=== PATIENT | female | born 1975 | race Caucasian/White ===

== ENCOUNTER → 2017-05-22 16:23 | Outpatient (CLI) | payer BC, SELFPAY ==
--- NOTE | 2017-05-22 16:27 | MM_ITS ---
MM Dig screening mamm BI w/CAD CAD Screening ORDERING PHYSICIAN : Emily Vick PATIENT AGE: 41 years GENDER: Female COMPARISON: Previous mammograms: February 2015, April 2016.. Left mammogram from September 2015 INDICATION: Routine screening no hormones. No new complaints. Previous cyst aspiration. Positive Family history. Mother with breast cancer age 50 and grandmother at age 40 TECHNIQUE: Standard CC and MLO images were obtained. R2 CAD reviewed. FINDINGS: Moderate breast density with fibroglandular elements most evident upper-outer quadrant bilateral RIGHT BREAST:Stable appearance right breast. No new findings. No areas of concern. LEFT BREAST:Visual inspection as well as CAD highlights an area of possible architectural distortion & slight increased minimal density at the lateral left breast on the cc view only. This appearance warrants additional CC and possibly rolled cc spot views. As well as full 90 degree view of the left breast. It may merely reflect summation shadow since seems to dissipate on MLO view but is a change on this single cc view obtained today..) Also Warrants close scrutiny in this patient with positive family history IMPRESSION: Question area of possible vague architectural distortion(versus summation shadow) developing lateral breast on cc view only. Warrants additional spot views as in text. BI-RADS Category: 0 Need Additional Imaging Evaluaiton. RECOMMENDED FOLLOW-UP: IMM - IMMEDIATE FOLLOW-UP RECOMMENDED (A letter has been sent to the patient regarding results of the study.)
== END ==
PROVIDERS: Family Provider Nurse Practitioner Family; PCP Nurse Practitioner Family; Visit Provider Nurse Practitioner Family
DX: Z12.31 Encounter for screening mammogram for malignant neoplasm of breast (principal)
CPT/HCPCS: 77067

== ENCOUNTER → 2017-05-28 14:18 | Outpatient (CLI) | payer BC, SELFPAY ==
--- NOTE | 2017-05-28 14:27 | MM_ITS ---
MM Dig mamm DX unilat LT CAD Ordering Physician: Emily Vick Patient Age: 41 years: Female HISTORY: ITS.REASON: ABNORMAL MAMM TECHNIQUE: CC, rolled CC spot views along with 90 degree view left breast COMPARISON :May 22, 2017: September 2015, February 2015 HISTORY for evaluation area of slight increased density lateral left breast cc view LEFT BREAST CC and rolled cc views performed today, decreased concern regarding any significant new feature upper-outer quadrant Area noted on recent screening mammogram seems to compress out on compression spot views.. However I would encourage a follow-up left mammogram in 6 months as well as directed physical exam to the upper-outer quadrant. A palpable area encountered or develops ultrasound be useful compliment to mammography in this region. I would note a previous ultrasound was performed here in 2016 and was unremarkable IMPRESSION: Today's rolled cc views decrease concern regarding any significant new features upper-outer quadrant left breast. Overall stable appearance on today's additional views. I would suggest a follow-up left mammogram and physical exam 6 - 8 months to confirm stability. With likely routine protocol thereafter BI-RADS Category: 3 Benign Finding Short Term Follow-up RECOMMENDED FOLLOW-UP: 6M - 6 MONTH FOLLOW-UP (A letter has been sent to the patient regarding results of the study.)
== END ==
PROVIDERS: Family Provider Nurse Practitioner Family; PCP Nurse Practitioner Family; Visit Provider Nurse Practitioner Family
DX: R92.8 Other abnormal and inconclusive findings on diagnostic imaging of breast (principal)
CPT/HCPCS: 77065

== ENCOUNTER 2018-06-12 13:40 | Outpatient (CLI) | payer BC, SELFPAY ==
[2018-06-12 14:20] VITALS: BP 121/78; PULSE 89; RESP 18; O2SAT 100
[2018-06-12 14:50] VITALS: BP 122/76; PULSE 85; RESP 18
== END 2018-06-12 15:00 | disposition home or self-care (01) ==
LOC: INF 14:01
PROVIDERS: Visit Provider Nurse Practitioner
DX: E61.1 Iron deficiency (principal)
CPT/HCPCS: 96365; J1439

== ENCOUNTER 2018-06-19 09:02 | Outpatient (CLI) | payer BC, SELFPAY ==
[2018-06-19 09:11] VITALS: BP 122/78; PULSE 96; RESP 20; TEMP 36.6; O2SAT 96
[2018-06-19 09:55] VITALS: BP 126/77; PULSE 84; RESP 18; O2SAT 97
== END 2018-06-19 09:55 | disposition home or self-care (01) ==
LOC: INF 09:02
PROVIDERS: Visit Provider Nurse Practitioner
DX: E61.1 Iron deficiency (principal)
CPT/HCPCS: 96365; J1439

== ENCOUNTER → 2018-10-10 09:27 | Outpatient (CLI) | payer BC, SELFPAY | PROVIDERS: PCP Nurse Practitioner Family; Visit Provider Nurse Practitioner Family | DX: G47.33 Obstructive sleep apnea (adult) (pediatric) (principal); I10 Essential (primary) hypertension; R40.0 Somnolence; R51 Headache; R06.83 Snoring | CPT/HCPCS: 95806 ==

== ENCOUNTER → 2019-04-11 11:50 | Outpatient (CLI) | payer OTHER, SELFPAY ==
--- NOTE | 2019-04-11 11:55 | XR_ITS ---
PROCEDURE: XR CHEST 2V CLINICAL HISTORY: COUGH COMPARISON: CXR CHEST(2 VIEWS-NOT PORTABLE) from 04/29/2016 FINDINGS: The cardiomediastinal silhouette and pulmonary vascularity are within normal limits. The lungs are clear without infiltrates, suspicious nodules, or pleural effusions. No acute bony abnormalities. IMPRESSION: No acute findings. Dictated by: Artur Medrano MD 04/11/2019 14:14 Electronically signed by Artur Medrano MD in [place] 04/11/2019 14:14
== END ==
PROVIDERS: PCP Nurse Practitioner Family; Visit Provider Nurse Practitioner Family
DX: R05 Cough (principal)
CPT/HCPCS: 71046

== ENCOUNTER → 2019-04-22 09:55 | Outpatient (CLI) | payer OTHER, SELFPAY ==
[2019-04-22 10:30] VITALS: PULSE 86; PULSE 91
== END ==
PROVIDERS: PCP Nurse Practitioner Family; Visit Provider Nurse Practitioner Family
DX: R05 Cough (principal)
CPT/HCPCS: 94060; 94640

== ENCOUNTER → 2019-08-21 13:37 | Outpatient (CLI) | payer OTHER, SELFPAY ==
--- NOTE | 2019-08-21 13:44 | US_ITS ---
PROCEDURE: US TRANSVAGINAL CLINICAL INDICATION: PROLONGED PERIODS,ABN UTERINE BLEEDING Dysfunctional uterine bleeding COMPARISON: No exams were available for comparison FINDINGS: The uterus measures 11 x 6 x 7 cm. Nabothian cysts are noted. The uterus is lobular in contour. Endometrial thickness is 7 mm. Heterogeneous echogenicity is present in the fundus of the uterus anteriorly measuring 1.7 x 1 cm consistent with a fibroid. In the posterior aspect of the body uterus there is a 1.2 x 1 cm area of heterogeneous echogenicity also suggesting a fibroid. The left ovary is 4 x 4 cm and contains a 3 cm cyst. The right ovary is 4 x 3 cm and contains a 2.6 cm cyst with a central septation. No cul-de-sac fluid is evident. IMPRESSION: Enlarged uterus with fibroid involvement. Bilateral ovarian cysts measuring up to 3 cm on the left Dictated by: Artur Medrano MD 08/22/2019 06:55 Electronically signed by Artur Medrano MD in [place] 08/22/2019 06:55
== END ==
LOC: RAD 13:37
PROVIDERS: PCP Nurse Practitioner Family; Visit Provider Nurse Practitioner Family
DX: N93.8 Other specified abnormal uterine and vaginal bleeding (principal)
CPT/HCPCS: 76830

== ENCOUNTER → 2020-01-14 10:54 | Outpatient (CLI) | payer OTHER, SELFPAY | PROVIDERS: PCP Family Medicine; Visit Provider Family Medicine | DX: Z03.818 Encounter for observation for suspected exposure to other biological agents ruled out (principal) | CPT/HCPCS: U0003 ==

== ENCOUNTER → 2020-03-31 11:49 | Outpatient (CLI) | payer OTHER, SELFPAY | PROVIDERS: PCP Family Medicine; Visit Provider Family Medicine | DX: Z03.818 Encounter for observation for suspected exposure to other biological agents ruled out (principal) | CPT/HCPCS: U0003 ==

== ENCOUNTER → 2021-02-21 13:54 | Outpatient (CLI) | payer BC, SELFPAY ==
--- NOTE | 2021-02-21 13:59 | MM_ITS ---
PROCEDURE INFORMATION: Exam: MG Bilateral Diagnostic Breast Tomosynthesis Exam date and time: 02/21/2021 1:59 PM Age: 45 years old Clinical indication: Short-term radiographic follow-up for questionable bilateral asymmetries TECHNIQUE: Imaging protocol: Bilateral Diagnostic tomosynthesis and 2D mammography including computer-aided detection (CAD) when performed. Unilateral or bilateral exam. COMPARISON: 1. MG MAMMO DIAGNOSTIC DIGITAL TOMOSYNTHESIS BILATERAL W CAD 08/19/2020 8:11 AM 2. MG MAMMO SCREENING DIGITAL TOMOSYNTHESIS BILATERAL W CAD 05/29/2019 9:57 AM FINDINGS: MAMMOGRAPHY: The breast tissue is heterogeneously dense, which may obscure small masses. There is no stellate mass, architectural distortion or suspicious microcalcifications in either breast to suggest malignancy. Specifically, no suspicious asymmetries identified in either breast. No skin thickening or axillary adenopathy. IMPRESSION: No mammographic evidence of malignancy. Annual bilateral mammographic screening is recommended unless otherwise clinically indicated. ASSESSMENT: BI-RADS Category 1: Negative
== END ==
LOC: RAD 13:54
PROVIDERS: PCP Family Medicine; Visit Provider Family Medicine
DX: R92.8 Other abnormal and inconclusive findings on diagnostic imaging of breast (principal)
CPT/HCPCS: 77062; 77066; G0279

== ENCOUNTER 2021-06-21 11:20 | Emergency (ER) | payer BC, SELFPAY ==
[2021-06-21 13:25] VITALS: BP 138/73; PULSE 83; RESP 19; TEMP 36.8; O2SAT 99; BMI 29.2
--- NOTE | 2021-06-21 13:44 | HMH.EDUTC ---
[facility] Disposition Clinical Impression: Vestibular neuronitis of left ear, Vertigo Disposition: Home, Self-Care Condition on Discharge: Good Instructions: Vertigo, Meclizine Additional Instructions: Take medication as prescribed Follow up with your Family Doctor if no improvement or any worsening of symoptms Return if needed Straight to ER if any life threatening symptoms Prescriptions: Meclizine HCl [Meclizine 25mg Tab] 25 mg PO Q8HP PRN #20 tab PRN Reason: Dizziness Transmission Status: Pending to [facility] [employer] # methylPREDNISolone [Medrol 4mg tab] 4 mg PO DIRECTED #21 tab Transmission Status: Pending to [employer] [employer] # Azithromycin [Z-Mitch 250mg Tab] 250 mg PO DIRECTED #6 tab Transmission Status: Pending to [facility] # Referrals: Lauren Wesley MD [Primary Care Provider] - As needed Time of Disposition: 13:54 Medical Decision Making - Shai Inquiry Pt receiving controlled substance: No Shai was queried for this patient: No Vital Signs: 06/21/21 13:25 Temperature 98.3 F Temperature Source Oral Pulse Rate [Left] 83 Respiratory Rate 19 Blood Pressure [Right Arm] 138/73 Blood Pressure Mean [Right Arm] 94 02 Sat by Pulse Oximetry 99 [facility] HPI - General Stated complaint: left ear pain Time Seen by Provider: 06/21/21 13:44 Mode of Arrival: Ambulatory Source of Information: Patient Limitations: No Limitations Description of Symptoms (Recalled from Triage Doc. by RN): pt c/o a L ear ache, LARIOS and dizziness x1wk. HEENT Symptoms (Recalled from RN notes): Yes Resp Symptoms (Recalled from RN notes): No Skin Symptoms (Recalled from RN notes): No MS Symptoms (Recalled from RN notes): No Functional Status (Recalled from RN notes): wnl - History of Present Illness Provider Complaint: Reyes states that she has been having pain in her left ear States that pain has been happening for over a week and now she is starting to have some dizziness when she bends over or moves too quickly States that she feele like her left ear is full - Related Data Home Medications Medication Instructions Recorded Confirmed losartan 50 mg tablet 50 mg PO DAILY 30 Days #30 08/14/17 01/11/19 omeprazole 40 mg capsule,delayed 40 mg PO DAILY 30 Days #30 08/14/17 01/11/19 release Cholecalciferol (Vitamin D3) 50,000 unit PO BID 06/12/18 01/11/19 [Vitamin D3 50,000 unit Cap] Previous Rx's Medication Instructions Recorded nptcvqnyzzlrkxc-yodfiulaqhqnvzd-GX 10 ml PO Q4-6H PRN #240 ml 01/11/19 2 mg-30 mg-10 mg/5 mL oral syrup Azithromycin [Z-Mitch 250mg Tab*] 250 mg PO UD DOSE PK #6 tab 03/30/19 Promethazine/Dextromethorphan 5 ml PO Q6HP PRN #240 syrup 03/30/19 [Promethazine-Dm Syrup] guaiFENesin [Mucinex 600mg tablet] 1 - 2 tab PO BIDP PRN #30 03/30/19 tab.er.12h methylPREDNISolone [Medrol] 4 mg PO DIRECTED 6 Days #21 03/30/19 tab.ds.pk Azithromycin [Z-Mitch 250mg Tab] 250 mg PO DIRECTED #6 tab 06/21/21 Meclizine HCl [Meclizine 25mg Tab] 25 mg PO Q8HP PRN #20 tab 06/21/21 methylPREDNISolone [Medrol 4mg 4 mg PO DIRECTED #21 tab 06/21/21 tab] Allergies Allergy/AdvReac Type Severity Reaction Status Date / Time Penicillins [PENICILLINS] Allergy Mild I-RASH Verified 01/11/19 12:15 - Worker's Comp Is this a Worker's Comp case?: No H History - Hepatitis A Screen Drug use history?: No High risk sexual behaviors?: No History of sexually transmitted infection?: No Currently employed?: No Childcare worker?: No Do you have indoor plumbing?: Yes Do you have electricity?: Yes Attestation statement:: This patient has been screened for Hepatitis A risk factors. I have reviewed the patient's past medical history: Yes Medical History: Reports:: Gastroesophageal Reflux Disease(GERD), Hypertension Other Surgeries: Yes: No Previous Surgery Amputation: No Fractures: No - Social History Smoking Status: Former smoker Alcohol Intake: never Sub
[2021-06-21 14:09] VITALS: BP 138/73; PULSE 83; RESP 19; TEMP 36.8
== END 2021-06-21 14:10 | disposition home or self-care (01) ==
PROVIDERS: Emergency Provider Nurse Practitioner; PCP Family Medicine
DX: H81.22 Vestibular neuronitis, left ear (principal); R42 Dizziness and giddiness; K21.9 Gastro-esophageal reflux disease without esophagitis; I10 Essential (primary) hypertension; Z88.0 Allergy status to penicillin; Z87.891 Personal history of nicotine dependence
CPT/HCPCS: 99213; G0463

== ENCOUNTER 2021-07-19 09:19 | Emergency (ER) | payer BC, SELFPAY ==
[2021-07-19 09:40] VITALS: BP 176/105; PULSE 78; RESP 16; TEMP 36.8; O2SAT 98; BMI 29.9
[2021-07-19 09:51] LABS: UTC Influenza A Antigen Negative (Negative)
[2021-07-19 09:52] LABS: UTC Influenza B Antigen Negative (Negative)
--- NOTE | 2021-07-19 10:04 | HMH.EDUTC ---
[facility] [place] Disposition Clinical Impression: Sinusitis Qualifiers: Sinusitis location: unspecified location Chronicity: unspecified Qualified Code(s): J32.9 - Chronic sinusitis, unspecified Disposition: Home, Self-Care Condition on Discharge: Good Instructions: Sinusitis, Sinus Headache, DI for Sinusitis Additional Instructions: *Monitor Temp, Over the counter Motrin or Tylenol as directed/as needed Tylenol every 4 hours and Motrin every 6 hours (as long as your family doctor has told you that you can take it) for fever or pain. and straight to ER if unable to lower temp less than 101.0 after medication given *Warm salt water gargles may help to soothe the throat *Throat Lozenges *Warm fluids like tea with honey may help to soothe the throat *Sleep elevated *Humidifier/Vaporizer *Flonase 2 sprays in each nostril daily but be aware that it may take 2-3 days before you notice improvement Take medication as prescribed Return if needed Follow up IMMEDIATELY for new or worsening symptoms or no Noticeable improvement over the next 48-72 hours. 911 for difficulty breathing or swallowing Prescriptions: Doxycycline Monohydrate [Doxycycline [place] 100mg Tab] 100 mg PO BID #14 tab Transmission Status: Received by [facility] #[id number] Fluticasone Propionate [Flonase 50mcg nasal spray 16gm] 1 spr NS DAILY #1 each Transmission Status: Received by [facility] #[id number] Referrals: Lauren Wesley MD [Primary Care Provider] - As needed Time of Disposition: 10:37 Medical Decision Making - Shai Inquiry Pt receiving controlled substance: No Shai was queried for this patient: No Vital Signs: 07/19/21 09:40 Temperature 98.3 F Temperature Source Oral Pulse Rate [Left] 78 Respiratory Rate 16 Blood Pressure [Right Arm] 176/105 H Blood Pressure Mean [Right Arm] 128 02 Sat by Pulse Oximetry 98 - Lab Data Lab results reviewed: Yes: I reviewed the patient's lab results. Lab Results 07/19/21 09:41: Influenza Type A Ag Negative, Influenza Type B Ag Negative Orders (Tests/Meds): ED MEDICATIONS Discontinued Medications Generic Name Dose Route Start Last Admin Trade Name Freq PRN Reason Stop Dose Admin Ketorolac Tromethamine 60 mg 07/19/21 10:16 07/19/21 10:33 Ketorolac 60mg/2ml Vial IM 07/19/21 10:17 60 mg ONCE ONE Administration Methylprednisolone Sodium Succinate 125 mg 07/19/21 10:16 07/19/21 10:33 Methylprednisolone Sod Succ 125mg Vial IM 07/19/21 10:17 125 mg ONCE ONE Administration Medical Decision Narrative: reports headache much better [facility] [place] HPI - General Stated complaint: LARIOS, congestion, fatigue Time Seen by Provider: 07/19/21 10:13 Mode of Arrival: Ambulatory Source of Information: Patient Limitations: No Limitations Description of Symptoms (Recalled from Triage Doc. by RN): since yesterday 07/18, pt c/o headache, sinus pain. HEENT Symptoms (Recalled from RN notes): Yes Resp Symptoms (Recalled from RN notes): No Skin Symptoms (Recalled from RN notes): No MS Symptoms (Recalled from RN notes): No Functional Status (Recalled from RN notes): wnl - History of Present Illness Provider Complaint: Patient states that she has been having sinus pain and pressure and headache State that she was prescribed Cefdinir but stopped taking it because it made her feel flush and itch all over States that she feels like she may have the flu or her sinus infection has got worse - Related Data Home Medications Medication Instructions Recorded Confirmed losartan 50 mg tablet 50 mg PO DAILY 30 Days #30 08/14/17 01/11/19 omeprazole 40 mg capsule,delayed 40 mg PO DAILY 30 Days #30 08/14/17 01/11/19 release Cholecalciferol (Vitamin D3) 50,000 unit PO BID 06/12/18 01/11/19 [Vitamin D3 50,000 unit Cap] Previous Rx's Medication Instructions Recorded ntqgjuovjdfrtnt-dmqpsgrtvnxkpxa-UF 10 ml PO Q4-6H PRN #240 ml 01/11/19 2 mg-30 mg-10 mg/5 mL oral syrup Azithromycin [
[2021-07-19 10:39] VITALS: BP 176/105; PULSE 78; RESP 16; TEMP 36.8
== END 2021-07-19 10:48 | disposition home or self-care (01) ==
PROVIDERS: Emergency Provider Nurse Practitioner; PCP Family Medicine
DX: J32.9 Chronic sinusitis, unspecified (principal); R53.82 Chronic fatigue, unspecified; I10 Essential (primary) hypertension; K21.9 Gastro-esophageal reflux disease without esophagitis; Z79.52 Long term (current) use of systemic steroids; Z79.899 Other long term (current) drug therapy; Z88.0 Allergy status to penicillin; Z88.8 Allergy status to other drugs, medicaments and biological substances; Z87.891 Personal history of nicotine dependence
CPT/HCPCS: 87804; 96372; 99213; G0463

== ENCOUNTER → 2022-04-04 11:26 | Outpatient (CLI) | payer BC, SELFPAY ==
[2022-04-04 12:38] LABS: Basophils # 0.1 K/mm3 (0-0.2); Basophils % 0.6 % (0.1-2.0); Eosinophils # 0.1 K/mm3 (0.0-0.4); Eosinophils % 0.5 % (0.1-12.0); Hemoglobin 13.2 g/dL (12.2-16.2); Lymphocytes % 29.1 % (10-50); Mean Corpuscular HGB Conc 31.6 g/dL (31.8-35.4); Mean Corpuscular Hemoglobin 26.3 pg (27.0-31.2); Mean Corpuscular Volume 83.3 fl (81-99); Mean Platelet Volume 8.1 fl (7.4-10.4); Monocytes # 0.4 K/mm3 (0.1-1.0); Neutrophils # 6.7 K/mm3 (1.8-7.8); Neutrophils % 65.9 % (37.0-80.0); Platelet Count 371 K/mm3 (142-424); Red Blood Count 5.04 M/mm3 (4.20-5.40); Red Cell Distribution Width 14.6 % (11.5-17.5); White Blood Count 10.2 K/mm3 (4.8-10.8)
[2022-04-04 13:09] LABS: Alanine Aminotransferase 14 U/L (12-78); Albumin Level 4.5 g/dl (3.5-5.0); Albumin/Globulin Ratio 1.5 (1.1-1.8); Alkaline Phosphatase 76 U/L (38-126); Anion Gap 9.5 mEq/L (5-15); Aspartate Amino Transferase 21 U/L (14-36); Bilirubin,Total 0.5 mg/dl (0.2-1.3); Blood Urea Nitrogen 11 mg/dl (7-17); Calcium 9.7 mg/dl (8.4-10.2); Carbon Dioxide 28 mmol/L (22.0-30.0); Chloride 104 mmol/L (98-107); Chol/HDL Ratio 3.4 (1-3.5); Cholesterol 189 mg/dl (140-200); Estimated Glomerular Filt Rate 108 ml/min (>60); GFR (African American) 130 ML/MIN (>60); Glucose 86 mg/dl (74-100); HDL Cholesterol 56 mg/dl (40-60); Potassium 4.5 mmoL/L (3.5-5.1); Sodium 137 mmol/L (136-145); Total Protein,Serum 7.5 g/dl (6.3-8.2); Triglycerides 82 mg/dl (30-150); VLDL Cholesterol 16 mg/dL (0-40)
[2022-04-04 13:25] LABS: Troponin I < 0.01 ng/ml (0.00-0.034)
[2022-04-04 13:40] LABS: Thyroid Stimulating Hormone 1.23 uIU/mL (0.465-4.68)
== END ==
PROVIDERS: PCP Nurse Practitioner Family; Visit Provider Nurse Practitioner Family
DX: R00.0 Tachycardia, unspecified (principal); R07.89 Other chest pain
CPT/HCPCS: 36415; 80053; 80061; 84443; 84484; 85025; 93225; 93226

== ENCOUNTER → 2022-12-15 08:50 | Outpatient (CLI) | payer BC, SELFPAY ==
[2022-12-15 09:15] LABS: Basophils % 0.3 % (0.1-2.0); Eosinophils # 0.1 K/mm3 (0.0-0.4); Eosinophils % 0.6 % (0.1-12.0); Hematocrit 42.1 % (37.0-47.0); Lymphocytes # 2.5 K/mm3 (0.7-4.5); Lymphocytes % 29.2 % (10-50); Mean Corpuscular HGB Conc 30.8 g/dL (31.8-35.4); Mean Corpuscular Hemoglobin 26.4 pg (27.0-31.2); Mean Corpuscular Volume 85.5 fl (81-99); Mean Platelet Volume 8.2 fl (7.4-10.4); Monocytes # 0.4 K/mm3 (0.1-1.0); Monocytes % 4.9 % (1.7-9.3); Neutrophils # 5.6 K/mm3 (1.8-7.8); Neutrophils % 64.8 % (37.0-80.0); Platelet Count 295 K/mm3 (142-424); Red Blood Count 4.92 M/mm3 (4.20-5.40); Red Cell Distribution Width 14.2 % (11.5-17.5); White Blood Count 8.7 K/mm3 (4.8-10.8)
[2022-12-15 09:49] LABS: Alanine Aminotransferase 17 U/L (12-78); Albumin Level 4.1 g/dl (3.5-5.0); Albumin/Globulin Ratio 1.4 (1.1-1.8); Alkaline Phosphatase 72 U/L (38-126); Anion Gap 8.2 mEq/L (5-15); Aspartate Amino Transferase 22 U/L (14-36); Bilirubin,Total 0.4 mg/dl (0.2-1.3); Blood Urea Nitrogen 10 mg/dl (7-17); Calcium 9.6 mg/dl (8.4-10.2); Carbon Dioxide 32 mmol/L (22.0-30.0); Chloride 103 mmol/L (98-107); Estimated Glomerular Filt Rate 90 ml/min (>60); GFR (African American) 109 ML/MIN (>60); Globulin 2.9 g/dL (1.3-3.2); Glucose 95 mg/dl (74-100); Magnesium 1.9 mg/dl (1.6-2.3); Potassium 4.2 mmoL/L (3.5-5.1); Sodium 139 mmol/L (136-145)
[2022-12-15 10:06] LABS: T4 (Thyroxine) 11.1 ug/dl (5.53-11.0)
[2022-12-15 10:20] LABS: Thyroid Stimulating Hormone 1.61 uIU/mL (0.465-4.68)
[2022-12-15 10:35] LABS: Ferritin 11.5 ng/ml (6.24-137)
[2022-12-15 10:39] LABS: Vitamin B12 343 pg/mL (239-931)
[2022-12-16 08:16] LABS: Thyroid Peroxidase Antibodies 17 IU/mL (0-34)
[2022-12-25 15:09] LABS: 1,25 Dihydroxy Vitamin D 59 pg/mL (.); 1,25-Dihydroxy, Vitamin D-2 <10 pg/mL (.); 1,25-Dihydroxy, Vitamin D-3 59 pg/mL (.)
== END ==
PROVIDERS: PCP Nurse Practitioner Family; Visit Provider Nurse Practitioner Family
DX: R53.83 Other fatigue (principal); I10 Essential (primary) hypertension; D50.9 Iron deficiency anemia, unspecified; E53.8 Deficiency of other specified B group vitamins; E55.9 Vitamin D deficiency, unspecified
CPT/HCPCS: 36415; 80053; 82607; 82652; 82728; 83735; 84436; 84443; 84481; 85025; 86376

== ENCOUNTER → 2023-02-20 08:30 | Outpatient (CLI) | payer BC, SELFPAY | PROVIDERS: PCP Nurse Practitioner Family; Visit Provider Nurse Practitioner Family | DX: R05.1 Acute cough (principal) ==

== ENCOUNTER → 2023-02-20 14:16 | Outpatient (CLI) | payer BC, SELFPAY ==
--- NOTE | 2023-02-20 14:20 | XR_ITS ---
FINAL REPORT CLINICAL HISTORY: arthralgia bilateral hands FINDINGS: Three views show no evidence of acute displaced fracture or dislocation of the visualized bony architecture. The joint spaces appear normal. IMPRESSION: Unremarkable exam. Reviewed, Interpreted and Dictated by Memo Blount MD Transcribed by Yefri Mcintyre Authenticated and [facility]
--- NOTE | 2023-02-20 14:20 | XR_ITS ---
FINAL REPORT CLINICAL HISTORY: bilateral hand arthralgia FINDINGS: Three views show no evidence of acute displaced fracture or dislocation of the visualized bony architecture. The joint spaces appear normal. IMPRESSION: Unremarkable exam. Reviewed, Interpreted and Dictated by Memo Blount MD Transcribed by Yefri Mcintyre Authenticated and [facility]
[2023-02-20 16:40] LABS: Coronavirus 19, PCR Not Detected (NotDetected); Influenza A, PCR Not Detected (NotDetected); Influenza B, PCR Not Detected (NotDetected)
[2023-02-20 17:57] LABS: Uric Acid 4.2 mg/dl (2.5-6.2)
[2023-02-20 18:34] LABS: Erythrocyte Sedimentation Rate 16 mm/hr (0-20)
[2023-02-26 21:25] LABS: Antinuclear Antibodies, IFA Positive
== END ==
PROVIDERS: PCP Nurse Practitioner Family; Visit Provider Nurse Practitioner Family
DX: M25.541 Pain in joints of right hand (principal); M25.542 Pain in joints of left hand; R05.1 Acute cough
CPT/HCPCS: 73130; 84550; 85651; 86038; 86431; 87636

== ENCOUNTER 2023-05-20 11:38 | Emergency (ER) | payer BC, SELFPAY ==
[2023-05-20 11:50] VITALS: BP 162/111; PULSE 101; RESP 18; TEMP 36.6; O2SAT 95; BMI 30.3
[2023-05-20 12:16] LABS: Apearance,Urine Clear (Clear); Color,Urine Yellow (Yellow)
[2023-05-20 12:17] LABS: Blood, Urine 2+ (Negative); Glucose,Urine (UA) Negative (Negative); Ketones,Urine Negative (Negative); Protein,Urine 1+ (Negative)
[2023-05-20 12:18] LABS: Bilirubin,Urine Negative (Negative); UTC Leukocyte Esterase,Urine 2+ (Negative); UTC Nitrate,Urine Positive (Negative); Urobilinogen,Urine 0.2 EU/dl (0.2)
--- NOTE | 2023-05-20 12:23 | EXP.UTC ---
Discharge Plan Disposition Patient Disposition: Home, Self-Care Condition: Good Prescriptions Prescriptions: New phenazopyridine [Pyridium] 200 mg tablet 200 mg PO Q8H 2 Days Qty: 6 0RF ciprofloxacin HCl [Cipro] 500 mg tablet 500 mg PO BID 7 Days Qty: 14 0RF ondansetron 4 mg Tablet,Disintegrating 4 mg PO Q8H PRN (Reason: Nausea) Qty: 8 0RF No Action losartan 50 mg tablet 50 mg PO DAILY 30 Days Qty: 30 omeprazole 40 mg capsule,delayed release(DR/EC) 40 mg PO DAILY 30 Days Qty: 30 sumatriptan succinate 50 mg tablet 50 mg PO ONCE PRN Folinic-Plus 4-50-2 mg tablet 1 tab-cap PO DAILY 30 Days Qty: 30 5RF metoprolol succinate 50 mg tablet extended release 24 hr 50 mg PO DAILY 30 Days Qty: 30 5RF sertraline 25 mg tablet 25 mg PO DAILY ondansetron 4 mg tablet,disintegrating 4 mg PO Q8H PRN (Reason: nausea and vomiting) Qty: 30 0RF Referrals Follow up/Referrals: Emily Vick APRN [Primary Care Provider] - See instructions Activity Restrictions/Add. Instructions Additional Instructions/Restrictions: Drink plenty of fluids. Take tylenol or ibuprofen for pain or fever. Take the medications as directed. Follow up with your regular doctor. GO TO THE ER FOR ANY WORSENING SYMPTOMS The pyridium will make your urine turn orange, this is an expected side effect. It will stain your clothes if it comes into contact with them. We will culture the urine. That will tell what bacteria is causing your infection and which antibiotics will treat it best. Sometimes the first antibiotic we prescribe turns out to not work against different bacteria. So, make sure you follow up within 3 days if you are not getting better. Clinical Impressions Clinical Impression: UTI (urinary tract infection) Stand Alone Forms Stand Alone Forms: Work/School Release Instructions Patient Instructions: Urinary Tract Infection, Urine Culture, DI for Urinary Tract Infection (UTI), Phenazopyridine Discharge ED Provider: Grayson Long [facility] [place] HPI General Stated complaint: Pain while urinating, pressure in bladder Mode of Arrival: Ambulatory Source of Information: Patient Limitations: No Limitations Time Seen by Provider: 05/20/23 12:05 Description of Symptoms (Recalled from Triage Doc. by RN): burning, pressure, increase frequency with little output; afebrile HEENT Symptoms (Recalled from RN notes): No Resp Symptoms (Recalled from RN notes): No Skin Symptoms (Recalled from RN notes): No MS Symptoms (Recalled from RN notes): No Functional Status (Recalled from RN notes): na History of Present Illness Provider Complaint: She states that for the past 2 days she has had low back pain, dysuria, and urinary frequency. Related Data Home Medications Medication Instructions Recorded Confirmed losartan 50 mg tablet 50 mg PO DAILY Hypertension 30 08/14/17 04/03/23 days ##30 omeprazole 40 mg capsule,delayed 40 mg PO DAILY GERD 30 days ##30 08/14/17 04/03/23 release sumatriptan succinate 50 mg tablet 50 mg PO ONCE PRN 12/13/22 04/03/23 sertraline 25 mg tablet 25 mg PO DAILY 05/01/23 05/01/23 Previous Rx's Medication Instructions Recorded leucovorin 4 mg-pyridoxal 1 tab-cap PO DAILY 30 days #30 tabs 12/13/22 phosphate 50 mg-mecobalamin 2 mg tablet (Folinic-Plus) metoprolol succinate 50 mg 50 mg PO DAILY 30 days #30 tabs 12/13/22 tablet,extended release 24 hr ondansetron 4 mg disintegrating 4 mg PO Q8H PRN nausea and 05/04/23 tablet vomiting #30 tabs ciprofloxacin HCl 500 mg tablet 500 mg PO BID 7 days #14 tabs 05/20/23 (Cipro) ondansetron 4 mg disintegrating 4 mg PO Q8H PRN Nausea #8 tabs 05/20/23 tablet phenazopyridine 200 mg tablet 200 mg PO Q8H 2 days #6 tabs 05/20/23 (Pyridium) Allergies Allergy/AdvReac Type Severity Reaction Status Date / Time Penicillins [PENICILLINS] Allergy Mild I-RASH Verified 05/01/23 09:51 cefdinir Allergy Verified 05/01/23 09:51 Worker's Comp Is this a Worker's Comp case?: No Is this an [facility] Worker's Comp?: No Is this a [place] Worker's Comp?: No [facility] Disclaimer: The information contained in this section may have been updated after the patient was seen, as this information can be updated by other users. Medical History Acid reflux Hypertension Social History Smoking Status: Former smoker alcohol intake: current substance use type: denies use current occupational status: employed Travel in the last 8 weeks: None ROS Obtained: Yes All systems reviewed & no additional complaints except as documented Constitutional Constitutional: Reports system reviewed and no additional complaints, except as documented, Denies chills and Denies fever(s) Eyes Eyes: Denies eye discharge ENT Ears, Nose, Mouth, and Throat: Denies dysphagia, Denies sore throat and Denies throat swelling Cardiovascular Cardiovascular: Denies chest pain and Denies dyspnea Respiratory Respiratory: Denies chest congestion, Denies cough and Denies dyspnea Gastrointestinal Gastrointestingal: Denies abdominal pain, constipation, diarrhea, dysphagia, nausea or vomiting Genitourinary Female Genitourinary: Reports as per HPI, Reports dysuria, Reports urinary frequency, Denies urinary incontinence, Reports urinary hesitancy and Reports urinary urgency Musculoskeletal Musculoskeletal: Denies arthralgias and Reports back pain Integumentary/Breasts Skin/Breast: Denies rash Neurologic Neurologic: Denies paresthesias Allergic/Immunologic Allergic/Immunologic: Denies throat swelling Physical Exam General General appearance: alert and in no apparent distress Head Head exam: atraumatic and normocephalic Eye Eye exam: Present normal appearance, PERRL and EOMI ENT ENT exam: Present normal exam, mucous membranes moist, TM's normal bilaterally and normal external ear exam Neck Neck exam: Present normal inspection, full ROM and trachea midline; Absent tenderness, meningismus or lymphadenopathy Chest Chest inspection: Present normal inspection and symmetric chest wall rise; Absent tenderness Respiratory Respiratory exam: Present normal lung sounds bilaterally; Absent respiratory distress, wheezes or stridor Cardiovascular Cardiovascular exam: Present regular rate, normal rhythm and normal heart sounds Abdominal Exam Abdominal exam: Present soft and normal bowel sounds; Absent distention, tenderness, guarding, rebound, rigidity, incision, psoas sign, obturator sign, heel tap sign, Tolentino's sign, Rovsing's sign or tenderness at McBurney's Point Extremities Exam Extremities exam: Present normal inspection, full ROM and normal capillary refill; Absent tenderness, edema, joint swelling, calf tenderness or cyanosis Back Exam Back exam: Present normal inspection and full ROM; Absent tenderness, CVA tenderness (R) or CVA tenderness (L) Neurological Exam Neurological exam: Present alert, oriented X3 and normal gait Psychiatric Psychiatric exam: Present normal affect and normal mood Skin Skin exam: Present warm, dry, intact and normal color Lymphatic Lymphatic Findings: no adenopathy Medical Decision Making Medical Records Medical records reviewed: No I reviewed the patient's medical records. Shai Inquiry Pt receiving controlled substance: No Vital Signs: 05/20/23 11:50 Temperature 97.8 F Temperature Source Oral Pulse Rate [Left] 101 H Respiratory Rate 18 Blood Pressure [Left Arm] 162/111 H Blood Pressure Mean [Left Arm] 128 Blood Pressure Source [Left Arm] Automatic Cuff 02 Sat by Pulse Oximetry 95 Oxygen Delivery Method Room Air Lab Data Lab results reviewed: Yes I reviewed the patient's lab results. Lab Results 05/20/23 12:16: Urine Color Yellow, Urine Appearance Clear, Urine pH 6.0, Ur Specific [place] 1.030, Urine Protein 1+, Urine Glucose (UA) Negative, Urine Ketones Negative, Urine Blood 2+, Urine Nitrate Positive A, Urine Bilirubin Negative, Urine Urobilinogen 0.2, Ur Leukocyte Esterase 2+ A Orders (Tests/Meds): ORDERS Category Date Time Status Urine Culture Stat Micro 05/20/23 12:16 Ordered
[2023-05-20 12:37] VITALS: BP 162/91; PULSE 101; RESP 18; TEMP 36.6; O2SAT 96
== END 2023-05-20 12:37 | disposition home or self-care (01) ==
PROVIDERS: Emergency Provider Nurse Practitioner Family; PCP Nurse Practitioner Family
DX: N39.0 Urinary tract infection, site not specified (principal); B96.29 Other Escherichia coli [E. coli] as the cause of diseases classified elsewhere; M54.59 Other low back pain; K21.9 Gastro-esophageal reflux disease without esophagitis; I10 Essential (primary) hypertension
CPT/HCPCS: 81003; 87086; 99212; 99214; G0463

== ENCOUNTER 2023-06-13 11:54 | Emergency (ER) | payer BC, SELFPAY ==
[2023-06-13] VITALS (8 sets, daily range): BP systolic 153–177; BP diastolic 88–104; PULSE 73–90; RESP 15–16; TEMP 36.6; O2SAT 94–100; BMI 29.6
--- NOTE | 2023-06-13 12:01 | ECG_ITS ---
APPROVED REPORT Exam: Resting ECG HR:86 bpm ECG Measurements Heart Rate 86 AXES [place] 170 P 54 QRSd 85 QRS -11 QT 349 T 51 QTc 392 Conclusion SINUS RHYTHM Electronically signed by : DAMION LUNDBERG, 06/14/2023 12:51:00
--- NOTE | 2023-06-13 12:10 | XR_ITS ---
FINAL REPORT CLINICAL HISTORY: L chest wall pain FINDINGS: SINGLE-VIEW CHEST The heart size is normal. The mediastinum is normal. The lungs are clear. There is no pneumothorax. IMPRESSION: No acute cardiopulmonary process. Reviewed, Interpreted and Dictated by Harry Miles III, MD Transcribed by Eryn Moya Authenticated and [facility]
[2023-06-13 12:24] LABS: Basophils # 0.1 K/mm3 (0-0.2); Basophils % 0.7 % (0.1-2.0); Eosinophils # 0.1 K/mm3 (0.0-0.4); Eosinophils % 0.9 % (0.1-12.0); Hematocrit 41.3 % (37.0-47.0); Hemoglobin 13.2 g/dL (12.2-16.2); Lymphocytes # 2.5 K/mm3 (0.7-4.5); Lymphocytes % 32.5 % (10-50); Mean Corpuscular Volume 87.5 fl (81-99); Mean Platelet Volume 8.3 fl (7.4-10.4); Monocytes # 0.3 K/mm3 (0.1-1.0); Monocytes % 4.4 % (1.7-9.3); Neutrophils # 4.8 K/mm3 (1.8-7.8); Neutrophils % 61.4 % (37.0-80.0); Platelet Count 267 K/mm3 (142-424); Red Blood Count 4.72 M/mm3 (4.20-5.40); Red Cell Distribution Width 14.4 % (11.5-17.5); White Blood Count 7.7 K/mm3 (4.8-10.8)
[2023-06-13] MEDS: ASPIRIN 81MG CHEWABLE TABLET 324 MG PO (12:25)
--- NOTE | 2023-06-13 12:34 | ED_ITS ---
Discharge Plan Disposition Patient Disposition: Home, Self-Care Prescriptions Prescriptions: No Action losartan 50 mg tablet 50 mg PO DAILY 30 Days Qty: 30 omeprazole 40 mg capsule,delayed release(DR/EC) 40 mg PO DAILY 30 Days Qty: 30 Ubrelvy 100 mg tablet 100 mg PO .COMPLEX PRN Rx Instructions: 100 mg orally Take 1 with onset of headache, may repeat in 2 hours without relief up to 2 per 24 hours.; PRN; sumatriptan succinate 50 mg tablet 50 mg PO ONCE PRN Hold Instructions: Dose Change metoprolol succinate 50 mg tablet extended release 24 hr 50 mg PO DAILY 30 Days Qty: 30 5RF sertraline 25 mg tablet 25 mg PO DAILY ondansetron 4 mg tablet,disintegrating 4 mg PO Q8H PRN (Reason: nausea and vomiting) Qty: 30 0RF semaglutide (weight loss) 1 mg/0.5 mL pen injector 1 mg SQ WEEKLY Qty: 2 0RF Rx Instructions: administer weeks 9 through 12 of therapy Referrals Follow up/Referrals: Jamie Hernandez PA [Physician Sailing Officer] - See instructions Codi Mahoney APRN [Primary Care Provider] - See instructions Devon Ross MD [Staff Physician] - See instructions Activity Restrictions/Add. Instructions Additional Instructions/Restrictions: Call your family doctor to establish care for this visit to the emergency department and schedule follow-up within 48 hours to ensure improvement. If you have any worsening of your condition or any other concerning signs or symptoms, return to the emergency department or your primary care doctor for further evaluation. Take Tylenol 1000 mg every 6 hours (4 times daily) and ibuprofen 400 mg every 6 hours (4 times daily) as needed with food and water to prevent GI upset and kidney damage. Tomorrow, 06/13, you can walk-in to cardiology clinic and request Jamie Hernandez or Ladan at 11:00 a.m. to establish care and have further workup. Clinical Impressions Clinical Impression: Chest pain Discharge ED Provider: Ciro Allen General Adult HPI General Chief complaint: PAIN Stated complaint: pain between shoulder blades Time Seen by Provider: 06/13/23 11:58 Mode of Arrival: Ambulatory Source of Information: Patient Limitations: No Limitations Description of Symptoms (Recalled from ER Triage Doc. by RN): pt presents to ED from primary [facility] for workup of should discomfort. pt reports pt has been having left shoulder pain ongoing for the past couple of days. pt thought that she slept on her should wrong but pain has continued. History of Present Illness HPI narrative: This is a 47-year-old female with history of hypertension presenting with multiple complaints. Patient states that for the past 2 or 3 days, she has had pain in her left shoulder blade. She assumed at first that she had just slept on her neck or back wrong. It has been crescendo since that time. Patient states that it is moderate to severe in intensity at this point, radiates from her left shoulder blade through her axilla into her left upper extremity, and around to her left side of her chest. She had 1 episode of nausea without vomiting and intermittent episodes of diaphoresis, however unsure if this is related to the pain. Denies shortness of breath, neurologic deficits, left lower extremity symptoms, left-sided facial symptoms, or any other concerns. She states that she talked to her family physician and they recommended she come to the emergency department for further evaluation Please note that above description of symptoms, in this electronic medical record under categorization of recalled from ER triage doctor by RN are reflective of an initial nursing assessment, however, is not reflective of my full history and physical exam that was personally taken and clarified. Consequentially, this preceding description of symptoms, which may include the patient's categorized chief complaint in the EMR, do not reflect my personal clinical impression, and the ultimate description of history of present illness and patient stated complaints should be deferred to this section of the note. Unless stated otherwise or congruent with this section of the note, additional signs, symptoms, or incongruence should be interpreted as inaccurate with my clinical impression. Related Data Home Medications Medication Instructions Recorded Confirmed losartan 50 mg tablet 50 mg PO DAILY Hypertension 30 08/14/17 06/13/23 days ##30 omeprazole 40 mg capsule,delayed 40 mg PO DAILY GERD 30 days ##30 08/14/17 06/13/23 release sumatriptan succinate 50 mg tablet 50 mg PO ONCE PRN 12/13/22 06/13/23 sertraline 25 mg tablet 25 mg PO DAILY 05/01/23 06/13/23 ubrogepant 100 mg tablet (Ubrelvy) 100 mg PO .COMPLEX PRN 06/07/23 06/13/23 Previous Rx's Medication Instructions Recorded metoprolol succinate 50 mg 50 mg PO DAILY 30 days #30 tabs 12/13/22 tablet,extended release 24 hr ondansetron 4 mg disintegrating 4 mg PO Q8H PRN nausea and 05/04/23 tablet vomiting #30 tabs semaglutide (weight loss) 1 mg/0.5 1 mg (0.5 mL) SQ WEEKLY #2 mL 06/05/23 mL subcutaneous pen injector Allergies Allergy/AdvReac Type Severity Reaction Status Date / Time Penicillins [PENICILLINS] Allergy Mild I-RASH Verified 06/13/23 11:23 cefdinir Allergy Verified 06/13/23 11:23 [facility] Disclaimer: The information contained in this section may have been updated after the patient was seen, as this information can be updated by other users. Medical History Vestibular neuronitis of left ear Vertigo Fatigue Vitamin D deficiency Iron deficiency anemia Low vitamin B12 level Arthralgia of hands, bilateral Numbness of tongue Positive MARNIE (antinuclear antibody) Fibromyalgia Obstructive sleep apnea Obesity (BMI 30.0-34.9) BMI 35.0-35.9,adult Weight gain Migraine headache Snoring Sleep disorder breathing Acid reflux Hypertension Surgical History No significant past surgical history Family History Other No significant family history Social History Smoking Status: Never smoker years smoked: 15 smoking status stop date: 16 yrs ago alcohol intake: current substance use type: denies use current occupational status: employed Travel in the last 8 weeks: None household members: family housing: house marital status: number of children: 3 ROS Obtained: Yes All systems reviewed & no additional complaints except as documented Physical Exam General General appearance: alert Head Head exam: atraumatic and normocephalic Eye Eye exam: Present normal appearance, PERRL and EOMI ENT ENT exam: Present mucous membranes moist Neck Neck exam: Present trachea midline Chest Chest inspection: Present normal inspection and symmetric chest wall rise Respiratory Respiratory exam: Present normal lung sounds bilaterally; Absent respiratory distress, wheezes, stridor, accessory muscle use or prolonged expiratory phase Cardiovascular Cardiovascular exam: Present regular rate and normal rhythm Abdominal Exam Abdominal exam: Present soft; Absent distention, tenderness, guarding, rebound or rigidity Extremities Exam Extremities exam: Absent edema Neurological Exam Neurological exam: Present alert, oriented X3 and CN II-XII intact Skin Skin exam: Present warm and dry; Absent cyanosis, diaphoresis or pallor Medical Decision Making Medical Records Medical records reviewed: Yes I reviewed the patient's medical records. Shai Inquiry Pt receiving controlled substance: No Shai was queried for this patient: No Vital Signs: 06/13/23 11:55 06/13/23 12:30 06/13/23 13:00 Temperature 97.9 F Temperature Source Oral Pulse Rate 89 76 Pulse Rate [Left Radial] 90 Respiratory Rate 16 Blood Pressure 154/104 H 160/101 H Blood Pressure [Right Arm] 177/101 H Blood Pressure Mean [Right Arm] 126 02 Sat by Pulse Oximetry 98 94 L 96 Oxygen Delivery Method Room Air 06/13/23 13:30 06/13/23 14:00 06/13/23 14:31 Temperature Temperature Source Pulse Rate 75 76 88 Pulse Rate [Left Radial] Respiratory Rate Blood Pressure 160/96 H 153/96 H 154/88 H Blood Pressure [Right Arm] Blood Pressure Mean [Right Arm] 02 Sat by Pulse Oximetry 98 97 98 Oxygen Delivery Method Room Air Lab Data Lab Results 06/13/23 12:17: WBC 7.7, RBC 4.72, Hgb 13.2, Hct 41.3, MCV 87.5, MCH 28.0, MCHC 32.0, RDW 14.4, Plt Count 267, MPV 8.3, Neut % (Auto) 61.4, Lymph % (Auto) 32.5, [place] % (Auto) 4.4, Eos % (Auto) 0.9, Baso % (Auto) 0.7, Neut # (Auto) 4.8, Lymph # (Auto) 2.5, [place] # (Auto) 0.3, Eos # (Auto) 0.1, Baso # (Auto) 0.1, Sodium 137, Potassium 4.0, Chloride 107, Carbon Dioxide 26, Anion Gap 8.0, BUN 13, Creatinine 0.60, Estimated Creat Clear 148, Estimated GFR 107, Est GFR ( Amer) 130, Glucose 97, Calcium 9.8, Total Bilirubin 0.5, AST 27, ALT 20, Alkaline Phosphatase 69, Troponin I < 0.01, NT-Pro-B Natriuret Pep 20.3, Total Protein 7.0, Albumin 4.1, Globulin 2.9, Albumin/Globulin Ratio 1.4 06/13/23 14:10: Troponin I < 0.01 06/13/23 12:17 06/13/23 12:17 Orders (Tests/Meds): ED MEDICATIONS Discontinued Medications Generic Name Dose Route Start Last Admin Trade Name Jw PRN Reason Stop Dose Admin Aspirin 324 mg 06/13/23 12:10 06/13/23 12:25 Aspirin 81mg Chewable Tablet PO 06/13/23 12:11 324 mg ONCE ONE Administration ORDERS Category Date Time Status CXR --portable [XR chest portable] Stat Exams 06/13/23 12:10 Completed Brain Natriuretic Peptide Stat Lab 06/13/23 12:17 Completed CBC w/Auto Diff [Complete Blood Count Auto Diff] Stat Lab 06/13/23 12:17 Completed CMP [Comprehensive Metabolic Panel] Stat Lab 06/13/23 12:17 Completed Trop I [Troponin I] Stat Lab 06/13/23 12:17 Completed Troponin I Q3H Lab 06/13/23 14:10 Completed Troponin I Q3H Lab 06/13/23 18:15 Ordered Medical Decision Narrative: This is a 47-year-old female with history of hypertension presenting with multiple complaints. Patient states that for the past 2 or 3 days, she has had pain in her left shoulder blade. She assumed at first that she had just slept on her neck or back wrong. It has been crescendo since that time. Patient states that it is moderate to severe in intensity at this point, radiates from her left shoulder blade through her axilla into her left upper extremity, and around to her left side of her chest. She had 1 episode of nausea without vomiting and intermittent episodes of diaphoresis, however unsure if this is related to the pain. Denies shortness of breath, neurologic deficits, left lower extremity symptoms, left-sided facial symptoms, or any other concerns. She states that she talked to her family physician and they recommended she come to the emergency department for further evaluation. History was obtained via conversation with patient. On arrival, patient hemodynamically stable, alert, oriented x4, appropriate, GCS 15, moving all extremities spontaneously, pupils equal and reactive to light. Full physical exam performed and significant for well-appearing woman in no acute distress. Mild to moderately hypertensive, nontachycardic, saturating appropriately on room air without any increased work of breathing or tachypnea. Lungs are clear to auscultation bilaterally, cardiac exam within normal limits and pulses equal and symmetric. Neurologically intact and symmetric. No abdominal pain or pulsatile abdominal mass. Differential includes microvascular coronary artery disease, CHF, ACS, MS, coronary artery dissection, pneumothorax, PE, dissection, pericarditis, myocarditis, pneumothorax, aortic aneurysm, pneumonia, bronchitis, among others. Patient was given 324 mg aspirin for symptomatic management and correction of underlying abnormalities. Workup independently interpreted and significant for nonactionable CBC or chemistry. Initial troponin negative, chest x-ray without acute cardiopulmonary airspace disease or any other abnormalities. See radiology read for full review of final results. Independent interpretation of EKG shows sinus rhythm 86 beats a minute no ST or T wave changes concerning for acute ischemia. OR, QRS, QT intervals within normal limits. Good R wave progression. [place] normal. Heart score. PERC negative. Patient was placed in observation beginning at 12 PM in order to rule out evolving MS with delta troponins and determine need for admission versus home-going. The patient was provided cardiac monitoring while awaiting results. Independent interpretation of results demonstrated negative delta troponin. On reevaluation, patient still resting at baseline. At this time, I feel patient is appropriate for discharge. Total observation time 3 hours. Cardiology was contacted and interactive discussion was had with their team. Patient able to follow-up tomorrow, 06/13 in clinic at 11 AM for further evaluation. Because patient at baseline without signs or symptoms of clinical decompensation, deemed appropriate for discharge. Results were relayed to patient who voiced understanding and were agreeable to outpatient management and follow up. I discussed my clinical impression with patient and answered all questions. At this time, the evidence for any other entities in the differential is insufficient to warrant any further testing or ED observation. This was explained as well. Advisory was given that persistent or worsening symptoms require further evaluation. I confirmed the understanding of this discussion. Critical Care Critical Care Time Critical Care Time: No
[2023-06-13 12:40] LABS: Chloride 107 mmol/L (98-107)
[2023-06-13 12:41] LABS: Sodium 137 mmol/L (136-145)
[2023-06-13 12:43] LABS: Alanine Aminotransferase 20 U/L (12-78); Alkaline Phosphatase 69 U/L (38-126); Aspartate Amino Transferase 27 U/L (14-36); Bilirubin,Total 0.5 mg/dl (0.2-1.3); Blood Urea Nitrogen 13 mg/dl (7-17); Creatinine Clearance Estimated 148 mL/min (50-200); Estimated Glomerular Filt Rate 107 ml/min (>60); GFR (African American) 130 ML/MIN (>60)
[2023-06-13 12:44] LABS: Albumin Level 4.1 g/dl (3.5-5.0); Albumin/Globulin Ratio 1.4 (1.1-1.8); Calcium 9.8 mg/dl (8.4-10.2); Carbon Dioxide 26 mmol/L (22.0-30.0); Globulin 2.9 g/dL (1.3-3.2); Glucose 97 mg/dl (74-100)
[2023-06-13 12:53] LABS: NT Pro Brain Natriuretic Pep. 20.3 pg/mL (0-125)
[2023-06-13 12:58] LABS: Troponin I < 0.01 ng/ml (0.00-0.034)
--- NOTE | 2023-06-13 14:13 | PC.NURSE ---
updated pt and family about test results, green blood for 2nd trop and sent to lab
[2023-06-13 14:43] LABS: Troponin I < 0.01 ng/ml (0.00-0.034)
== END 2023-06-13 15:17 | disposition home or self-care (01) ==
PROVIDERS: Emergency Provider Emergency Medicine; PCP Nurse Practitioner Family
DX: R07.89 Other chest pain (principal); M25.512 Pain in left shoulder; M79.602 Pain in left arm; M79.7 Fibromyalgia; G47.33 Obstructive sleep apnea (adult) (pediatric); I10 Essential (primary) hypertension; K21.9 Gastro-esophageal reflux disease without esophagitis; R11.0 Nausea
CPT/HCPCS: 71045; 80053; 83880; 84484; 85025; 93005; 99285

== ENCOUNTER 2023-07-02 10:09 | Outpatient (CLI) | payer BC, SELFPAY ==
--- NOTE | 2023-07-02 10:09 | US_ITS ---
FINAL REPORT CLINICAL HISTORY: I10 - Essential (primary) hypertension COMPARISON: None FINDINGS: RENAL ULTRASOUND: The right kidney measures 10.8 cm and sagittal length. No evidence of hydronephrosis or focal mass is identified. The left kidney measures 10 cm in sagittal length. No evidence of hydronephrosis or focal mass is identified. IMPRESSION: Unremarkable renal ultrasound without evidence of hydronephrosis or focal mass identified. Reviewed, Interpreted and Dictated by Harry Miles III, MD Transcribed by Dianna Gillis Authenticated and . [facility]
--- NOTE | 2023-07-02 10:36 | CA_ITS ---
FINAL REPORT TECHNIQUE: Grayscale, color Doppler and duplex Doppler ultrasound of the kidneys, aorta and renal arteries was performed. Multiple velocities were measured. CLINICAL HISTORY: HTN COMPARISON: None FINDINGS: Aorta velocity: 85 cm/sec Right kidney: 10.6 cm. No evidence of hydronephrosis or mass. Right intrarenal RI: 0.45-0.58 Right renal artery velocity: 238 cm/sec. Right RAR (Renal artery-Aortic Ratio): 2.79 Left Kidney: 12.4 cm. No evidence of hydronephrosis or mass. Left intrarenal RI: 0.47-0.54 Left renal artery velocity: 213 cm/sec. Left RAR (Renal Artery-Aortic Ratio): 2.50 IMPRESSION: Less than 60% renal artery stenosis bilaterally. Recommend correlation with CTA or catheter directed angiogram. Reviewed, Interpreted and Dictated by Harry Miles III, MD Transcribed by Fannie Jon Authenticated and . [facility]
== END 2023-07-02 23:59 | disposition home or self-care (01) ==
LOC: RAD 10:09
PROVIDERS: PCP Nurse Practitioner Family; Visit Provider Physician Assistant
DX: I10 Essential (primary) hypertension (principal); R07.9 Chest pain, unspecified
CPT/HCPCS: 76770; 93976

== ENCOUNTER 2023-07-03 11:15 | Outpatient (CLI) | payer BC, SELFPAY ==
--- NOTE | 2023-07-03 | CA_ITS ---
APPROVED REPORT Exam: Exercise Treadmill Technologist: Naya Fowler, Ht: 5 ft 5 in Wt: 175 lbs BSA: 1.87 m2 HR: 87 bpm BP: 186/107 mmHg Rhythm: Normal sinus rhythm Medical History Medical History: HTN, Smoking Medications: Omeprazole,,,,, Losartan,,,,, Metoprolol Succinate,,,,, Sertraline,,,,, Methocarbamol,,,,, ONdansetron,,,,, SeMaglutide,,,,, Sumatriptan Succinate,,,,, UBrelvy,,,,, Allergies: PENICILLINS, CEFDANIR Cardiac Risk Factors: HTN, FHX of CAD, Smoking Stress Test Details Test: Luís HR Resting HR: 80 bpm Max Heart Rate (APMHR): 173 bpm Max HR Achieved: 175 bpm Target HR (85% APMHR): 147 bpm % of APMHR: 101 Recovery HR: 111 bpm HR response to stress: Normal HR response to stress BP Resting BP: 186.0/107 mmHg Max BP: 200/98 mmHg Recovery BP: 140.0/82.0 mmHg BP response to stress: Abnormal hypertensive response to stress. ECG Resting ECG: Normal sinus rhythm Stress EC mm horizontal ST depression Arrhythmia: PVCs Recovery ECG: Return to baseline within 3 minutes of recovery Recovery Arrhythmia: PVCs Clinical Exercise duration: 10:08 min Highest Stage Achieved: Exercise capacity: 12.8 METs Overall Exercise Capacity for Age: Average Stress ECG Conclusion The patient was able to exercise for a total of 10 minutes, 8 seconds. She achieved a total of 12.8 METS. She has average exercise capacity compared to age and sex matched peers. She has normal HR, but exaggerated BP, response to exercise. MAX HR: 175 % OF PM: 100% MAX BP: 220/90 METS: 12.8 TEST STOPPED DUE TO: DYSPNEA PT HAD DYSPNEA PVCS 1MM ST DEPRESSION ABNORMAL STRESS 1MM ST DEPRESSION AT PEAK STRESS Test Summary REST . . . . . . . Standing REST . . . . . . . Sitting REST 03:48 0.0 0.0 80 . 186/107 . . Stage 1 01:00 10.0 1.7 108 . . . . Stage 1 02:00 10.0 1.7 119 . . . . Stage 1 03:00 10.0 1.7 120 . 195/100 . . Stage 2 01:00 12.0 2.5 127 . . . . Stage 2 02:00 12.0 2.5 132 . . . . Stage 2 03:00 12.0 2.5 136 . 200/ 98 . . Stage 3 01:00 14.0 3.4 145 . . . . Stage 3 02:00 14.0 3.4 148 . . . . Stage 3 03:00 14.0 3.4 153 . . . . Stage 4 . . . . . . . Myoview Injected Stage 4 01:00 16.0 4.2 171 . . . . Stage 4 01:08 16.0 4.2 167 . . . Stop exercise at 10:08 RECOVERY 01:00 0.0 0.0 156 . . . . RECOVERY 02:00 0.0 0.0 139 . 200/110 . . RECOVERY 03:00 0.0 0.0 122 . 164/ 87 . . RECOVERY 04:00 0.0 0.0 120 . 164/ 87 . . RECOVERY 05:00 0.0 0.0 118 . 164/ 87 . . RECOVERY 06:00 0.0 0.0 114 . 164/ 87 . . RECOVERY 07:00 0.0 0.0 115 . 125/ 83 . . RECOVERY 07:46 0.0 0.0 115 . 140/ 82 . . Electronically signed by : Ladan Ross MD 07/04/2023 23:17:46
--- NOTE | 2023-07-03 11:17 | NM_ITS ---
APPROVED REPORT Exam: Nuclear Stress Test Indication: Chest pain, Fatigue, HTN, Family history Patient Location: Outpatient Stress Tech: Naya Fowler GA Tech:Evelin Mays, ARRT, RT (R)(N) Ht: 5 ft 5 in Wt: 175 lbs Bra Size: 36DD HR: 80 bpm BP: 186/107 mmHg BSA: 1.87 m2 Rhythm: NSR TID: 0.87 BMI: 29.1 History: Chest pain, Fatigue, HTN, Family history Procedure: Patient exercised on Luís protocol 10:08 minutes and sec, resting heart rate 80 bpm, resting blood pressure 186/107 mmHg, with exercise maximum heart rate achived was 175 bpm which is 101 % of the maximum predicted heart rate and blood pressure was 200/98 mmHg. Test was stopped due to SOB. Patient denied any complaint of chest pain. Patient has Average exercise capacity, achieved 12.8 METs of workload on treadmill, the blood pressure response to exercise was Exaggerated. Cardiac Stress and Resting SPECT Images: Cardiac Stress and Resting SPECT images were obtained using technetium 99m Myoview 31.1 mCi stress and 10.02 mCi at rest. Resting and stress imaging in supine and prone positions demonstrate no evidence of fixed or reversible perfusion defects. Gated imaging demonstrates normal global and regional LV systolic function. LVEF is calculated at 60%. Conclusion: No evidence of fixed or reversible perfusion defects. Gated imaging demonstrates normal global and regional LV systolic function. LVEF is calculated at 60%. Of note, the patient developed hypertensive exaggerated BP response to exercise at peak stress. BP control is recommended. Electronically signed by : Ladan Ross MD 07/04/2023 23:19:28
--- NOTE | 2023-07-03 12:48 | CA_ITS ---
APPROVED REPORT EXAM: Comprehensive 2D, Doppler, and color-flow Echocardiogram Night Assistant: Rowan Lau CRT Ht: 5 ft 5 in Wt: 175lbs BSA: 1.87 BP: 135/95 mmHg Indications: Chest Pain, Hypertension/HDD 2D Dimensions LA Volume 36.20 mL LA Volume Index 19.36 mL/m2 (M/F) 16-34 M-Mode Dimensions RVDd 2.32 cm (0.9-2.6) LA Diam 3.66 cm (1.9-4.0) LVDd 3.60 cm (3.5-5.7) LVDs 2.14 cm (3.5-5.7) IVSd 1.78 cm (0.6-1.1) PWd 1.46 cm (0.6-1.1) EF (Teich) 72.20% FS 40.60% EDV (Teich) 54.40 mL TAPSE 0.88 (<1.7) ESV (Teich) 15.10 mL LV Diastology MED A' 12.20 cm/s LAT A' 12.10 cm/s Aortic Valve AO Peak GR. 7.10 mmHg Pulmonary Valve PV Peak Velocity 102.0 (50-150 cm/s) Tricuspid Valve TR P. Velocity 243.00 cm/s RAP Estimate 10.00 mmHg RVSP 33.60 mmHg Left Ventricle The left ventricle is normal size. The left ventricular systolic function is normal. The left ventricular ejection fraction is within the normal range. There is increased LV wall thickness. There is normal LV segmental wall motion. The left ventricular diastolic function is normal. LVEF is 55%. Right Ventricle The right ventricle is normal size. The right ventricular systolic function is normal. Atria The left atrium size is normal. The right atrium size is normal. There is no Doppler evidence of interatrial shunt. Aortic Valve The aortic valve opens well. There is no aortic valvular stenosis. No aortic regurgitation is present. Mitral Valve The mitral valve is normal in structure. No evidence of mitral valve stenosis. There is no mitral valve regurgitation noted. Tricuspid Valve The tricuspid valve leaflets are thin and pliable. Trace tricuspid regurgitation. RVSP is normal. Pulmonic Valve The pulmonary valve is normal in structure. Trace pulmonic regurgitation. Great Vessels The aortic root is normal in size. The ascending aorta is normal in size. IVC is normal in size and collapses >50% with inspiration. Pericardium There is no pericardial effusion. Other Information Study Quality: Adequate Conclusion Normal biventricular systolic function. No significant valvular stenosis or regurgitation. Electronically signed by : Ladan Ross MD 07/04/2023 23:47:07
[2023-07-03] MEDS: SODIUM CHLORIDE 0.9% 10ML SYR (RAD ONLY) 10 ML IV ×2 (13:18)
[2023-07-03] MEDS: ISOTOPE MYOVIEW (PER STUDY) 1 DOSE IV (13:18)
== END 2023-07-03 23:59 ==
LOC: RAD 11:17
PROVIDERS: PCP Nurse Practitioner Family; Visit Provider Physician Assistant
DX: R07.9 Chest pain, unspecified (principal); R94.31 Abnormal electrocardiogram [ECG] [EKG]; I10 Essential (primary) hypertension; Z87.891 Personal history of nicotine dependence; Z82.49 Family history of ischemic heart disease and other diseases of the circulatory system
CPT/HCPCS: 78452; 93017; 93018; 93306; A9502

== ENCOUNTER 2023-08-22 09:38 | Outpatient (CLI) | payer BC, SELFPAY ==
--- NOTE | 2023-08-22 09:39 | CT_ITS ---
FINAL REPORT CLINICAL HISTORY: abnormal renal arterial duplex. COMPARISON: None FINDINGS: CTA ABDOMEN: CT abdomen: There is mild fatty infiltration of the liver. There are numerous low-attenuation structures in the liver, the largest of which measures 3.3 cm in size in the superior lateral segment of the left hepatic lobe, consistent with benign cysts. The gallbladder is normal in appearance. The spleen, pancreas, kidneys, and adrenal glands are unremarkable as well. CTA: The abdominal aorta reveals mild calcifications. The celiac axis, superior mesenteric artery, and inferior mesenteric artery are all patent without hemodynamically significant stenosis identified. There is a single right renal artery as well as dual left renal arteries. No evidence of significant renal artery stenosis is identified. IMPRESSION: No significant renal artery stenosis is visualized. There is a single right renal artery as well as dual left renal arteries. Mild fatty infiltration of the liver, with multiple presumed hepatic cysts as described above. The remainder of the abdominal vasculature is unremarkable without hemodynamically significant stenosis. Reviewed, Interpreted and Dictated by Manuel Burns MD Transcribed by Dianna Gillis Authenticated and . [facility]
[2023-08-22 10:10] LABS: Blood Urea Nitrogen 9 mg/dl (7-17); Estimated Glomerular Filt Rate 107 ml/min (>60); GFR (African American) 130 ML/MIN (>60)
[2023-08-22] MEDS: SODIUM CHLORIDE 0.9% 10ML SYR (RAD ONLY) 10 ML IV (10:58)
[2023-08-22] MEDS: 0.9 % SODIUM CHLORIDE 50 ML VIAL IV (10:58)
[2023-08-22] MEDS: IOPAMIDOL-370 (76%);100ML BOTTLE 100 ML IV (10:58)
== END 2023-08-22 23:59 | disposition home or self-care (01) ==
LOC: RAD 09:39
PROVIDERS: PCP Nurse Practitioner Family; Visit Provider Nurse Practitioner Family
DX: I10 Essential (primary) hypertension (principal); R07.9 Chest pain, unspecified; Z82.49 Family history of ischemic heart disease and other diseases of the circulatory system; M89.8X1 Other specified disorders of bone, shoulder
CPT/HCPCS: 36415; 74175; 82565; 84520; Q9967

== ENCOUNTER 2023-10-23 15:35 | Outpatient (CLI) | payer BC, SELFPAY ==
[2023-10-23 17:29] LABS: Anion Gap 11.4 mEq/L (5-15); Blood Urea Nitrogen 14 mg/dl (7-17); Calcium 10.9 mg/dl (8.4-10.2); Carbon Dioxide 31 mmol/L (22.0-30.0); Chloride 99 mmol/L (98-107); Estimated Glomerular Filt Rate 89 ml/min (>60); GFR (African American) 108 ML/MIN (>60); Glucose 88 mg/dl (74-100); Potassium 3.4 mmoL/L (3.5-5.1); Sodium 138 mmol/L (136-145)
== END 2023-10-23 23:59 | disposition home or self-care (01) ==
LOC: LAB 15:36
PROVIDERS: PCP Nurse Practitioner Family; Visit Provider Nurse Practitioner Family
DX: R07.9 Chest pain, unspecified (principal)
CPT/HCPCS: 36415; 80048

== ENCOUNTER 2023-11-01 14:23 | Outpatient (CLI) | payer BC, SELFPAY ==
[2023-11-01 15:07] LABS: Chloride 99 mmol/L (98-107); Sodium 137 mmol/L (136-145)
[2023-11-01 15:10] LABS: Blood Urea Nitrogen 11 mg/dl (7-17); Estimated Glomerular Filt Rate 89 ml/min (>60); GFR (African American) 108 ML/MIN (>60)
[2023-11-01 15:11] LABS: Calcium 9.8 mg/dl (8.4-10.2); Carbon Dioxide 34 mmol/L (22.0-30.0); Glucose 94 mg/dl (74-100)
[2023-11-01 15:52] LABS: Anion Gap 6.9 mEq/L (5-15)
[2023-11-01 16:01] LABS: Potassium 2.9 mmoL/L (3.5-5.1)
== END 2023-11-01 23:59 | disposition home or self-care (01) ==
PROVIDERS: PCP Nurse Practitioner Family; Visit Provider Physician Assistant
DX: E87.6 Hypokalemia (principal)
CPT/HCPCS: 36415; 80048

== ENCOUNTER 2024-05-21 08:27 | Outpatient (CLI) | payer BC, SELFPAY ==
[2024-05-21 09:53] LABS: Anti-Centromere B Antibodies ND; Anti-DNA (DS) Ab Qn ND; Anti-Jo-1 ND; Antichromatin Antibodies ND; Antiscleroderma-70 Antibodies ND; RNP Antibodies ND; Sjogren's Anti-SS-A ND; Sjogren's Anti-SS-B ND
[2024-05-21 10:03] LABS: Basophils % 0.3 % (0.1-2.0); Eosinophils # 0.1 K/mm3 (0.0-0.4); Eosinophils % 1.2 % (0.1-12.0); Hematocrit 39.1 % (37.0-47.0); Hemoglobin 12.6 g/dL (12.2-16.2); Lymphocytes # 2.2 K/mm3 (0.7-4.5); Lymphocytes % 28.2 % (10-50); Mean Corpuscular HGB Conc 32.2 g/dL (31.8-35.4); Mean Corpuscular Hemoglobin 27.8 pg (27.0-31.2); Mean Corpuscular Volume 86.1 fl (81-99); Mean Platelet Volume 10.5 fl (7.4-10.4); Monocytes # 0.4 K/mm3 (0.1-1.0); Monocytes % 5.8 % (1.7-9.3); Neutrophils # 4.9 K/mm3 (1.8-7.8); Neutrophils % 64.2 % (37.0-80.0); Platelet Count 361 K/mm3 (142-424); Red Blood Count 4.54 M/mm3 (4.20-5.40); Red Cell Distribution Width 13.2 % (11.5-17.5); White Blood Count 7.7 K/mm3 (4.8-10.8)
[2024-05-21 10:22] LABS: Albumin Level 4.6 g/dl (3.5-5.0); Chloride 99 mmol/L (98-107); Potassium 4.1 mmoL/L (3.5-5.1); Sodium 139 mmol/L (136-145)
[2024-05-21 10:25] LABS: Alanine Aminotransferase 20 U/L (12-78); Albumin/Globulin Ratio 1.6 (1.1-1.8); Alkaline Phosphatase 70 U/L (38-126); Anion Gap 11.1 mEq/L (5-15); Aspartate Amino Transferase 25 U/L (14-36); Bilirubin,Total 0.6 mg/dl (0.2-1.3); Blood Urea Nitrogen 14 mg/dl (7-17); Calcium 10.4 mg/dl (8.4-10.2); Carbon Dioxide 33 mmol/L (22.0-30.0); Cholesterol 222 mg/dl (140-200); Estimated Glomerular Filt Rate 77 ml/min (>60); GFR (African American) 93 ML/MIN (>60); Globulin 2.8 g/dL (1.3-3.2); Glucose 98 mg/dl (74-100); Total Protein,Serum 7.4 g/dl (6.3-8.2); Triglycerides 92 mg/dl (30-150); Uric Acid 6.5 mg/dl (2.5-6.2); VLDL Cholesterol 18 mg/dL (0-40)
[2024-05-21 10:26] LABS: Chol/HDL Ratio 3.5 (1-3.5); Erythrocyte Sedimentation Rate 15 mm/hr (0-20); HDL Cholesterol 63 mg/dl (40-60)
[2024-05-21 10:37] LABS: Direct LDL Cholesterol 123.55 mg/dL (100-129)
[2024-05-21 10:55] LABS: Thyroid Stimulating Hormone 1.15 uIU/mL (0.465-4.68)
[2024-05-21 10:59] LABS: Ferritin 37.7 ng/ml (6.24-137)
[2024-05-21 11:31] LABS: 25-OH Vitamin D, Total 46.2 ng/mL (30-100)
[2024-05-21 12:05] LABS: Hemoglobin A1C 5.5 % (4.0-6.0)
[2024-05-21 16:11] LABS: Vitamin B12 944 pg/mL (239-931)
[2024-05-22 08:30] LABS: RA Latex Turbid. <10.0 IU/mL (<14.0); Thyroid Peroxidase Antibodies 10 IU/mL (0-34); Triiodothyronine (T3) Free 3.1 pg/mL (2.0-4.4)
[2024-05-22 15:48] LABS: Antinuclear Antibodies (ANA) Negative (Negative); EBV Ab VCA, IgM <36.0 U/mL (0.0-35.9); EBV Nuclear Antigen Ab, IgG >600.0 U/mL (0.0-17.9); Thyroglobulin Level <1.0 IU/mL (0.0-0.9)
[2024-05-23 17:13] LABS: Antinuclear Antibodies, IFA Positive (.)
[2024-05-24 01:08] LABS: Magnesium,RBC 5.3 mg/dL (3.7-7.0)
== END 2024-05-21 23:59 | disposition home or self-care (01) ==
LOC: LAB.DROPOF 05-23 08:30
PROVIDERS: PCP Nurse Practitioner Family; Visit Provider Nurse Practitioner Family
DX: R53.83 Other fatigue (principal); M25.541 Pain in joints of right hand; M25.542 Pain in joints of left hand; R76.8 Other specified abnormal immunological findings in serum; R79.89 Other specified abnormal findings of blood chemistry; D50.9 Iron deficiency anemia, unspecified; E87.6 Hypokalemia; R63.5 Abnormal weight gain; M79.7 Fibromyalgia; E55.9 Vitamin D deficiency, unspecified; I70.1 Atherosclerosis of renal artery; Z68.28 Body mass index [BMI] 28.0-28.9, adult
CPT/HCPCS: 80053; 80061; 82306; 82533; 82607; 82728; 83036; 83735; 84443; 84481; 84550; 85025; 85651; 86038; 86225; 86235; 86376; 86431; 86664; 86665; 86800

== ENCOUNTER 2024-05-28 16:42 | Outpatient (CLI) | payer BC, SELFPAY ==
[2024-05-28 16:53] LABS: Intact Parathyroid Hormone 70.9 pg/mL (7.5-53.5)
[2024-05-29 15:13] LABS: Calcium, Ionized 5.3 mg/dL (4.5-5.6)
== END 2024-05-28 23:59 | disposition home or self-care (01) ==
LOC: LAB.DROPOF 16:42
PROVIDERS: PCP Nurse Practitioner Family; Visit Provider Nurse Practitioner Family
DX: E83.52 Hypercalcemia (principal); R53.83 Other fatigue
CPT/HCPCS: 82330; 83970

== ENCOUNTER 2024-06-04 15:01 | Outpatient (CLI) | payer BC, SELFPAY ==
--- NOTE | 2024-06-04 15:02 | US_ITS ---
FINAL REPORT CLINICAL HISTORY: Elevated PTH, hypercalcemia COMPARISON: None FINDINGS: Sonographic images of the thyroid gland were obtained. The right thyroid lobe measures 43 mm. in length. The left thyroid lobe measures 43 mm. in length. The thyroid isthmus measures 3 mm. There are 3 nodules in the thyroid gland, the largest in the right lobe measuring up to 8 mm in size, a TI-RADS category 3 nodule. There is a single nodule in the left lobe, measuring up to 5 mm in size, a TI-RADS category 4 nodule. IMPRESSION: Several subcentimeter nodules are noted in the thyroid gland, and according to TI-RADS criteria no follow-up is required at this time. Reviewed, Interpreted and Dictated by Manuel Burns MD Transcribed by Dianna Gillis Authenticated and [facility]
== END 2024-06-04 23:59 | disposition home or self-care (01) ==
PROVIDERS: PCP Nurse Practitioner Family; Visit Provider Nurse Practitioner Family
DX: R79.89 Other specified abnormal findings of blood chemistry (principal); E83.52 Hypercalcemia
CPT/HCPCS: 76536

== ENCOUNTER 2024-12-09 15:05 | Outpatient (CLI) | payer BC, SELFPAY ==
[2024-12-09 15:08] LABS: Influenza A, PCR Not Detected (NotDetected); Influenza B, PCR Not Detected (NotDetected)
--- OUTSIDE RECORDS SUMMARY | 2024-12-09 15:08 | XMS_ITS | Encounter Summary ---
Author Organization [facility] Address [address] [place] [address] Care Team Providers Care Vtc Technician Name Role Phone Emily Vick APRN Primary Care Provider [phone] Reason for Referral * Consultation (Routine) - Closed Specialty Diagnoses / Procedures Referred By Contac t Referred To Contact Dentist / Pain Medicine Diagnoses Obstructive sleep apnea (adult) (pediatric) Za Garrison MD [address] [facility] [address] [place] [address] Phone: tel: fax: Steph Velasquez, DDS [address] [facility] [address] [place] [address] Phone: tel: fax: Referral ID Status Reason Start Date Expiration Date Visits Re quested Visits Authorized [id number] Closed 08/10/2023 02/08/2025 1 1 Encounter Details Date Type Department Care Team (Late st Contact Info) Description 08/10/2023 [facility] [address] [place] [address] Za Garrison MD [facility] [facility] [address] [place] [address] Obstructive sleep apnea (adult) (pediatric) (Primary Dx) Social History Tobacco Use Types Packs/Day Years Used Date Smoking Tobacco: Never Smokeless Tobacco: Never Alcohol Use Standard Drinks/Week Comments Yes 0 (1 standard drink = 0.6 oz pur e alcohol) rarely PHQ-2 Answer Date Recorded Patient Health Questionnaire-2 Score 0 07/12/2023 Comments Unknown Sex and Gender Information Value Date Recorded Sex Assigned at Not on file Legal Sex Female 8:49 PM EDT Gender Identity Not on file Sexual Orientation Not on file documented as of this encounter Plan of Treatment Scheduled Referrals Name Type Priority Associated Diagnoses Order Schedule Ambulatory Referral to Orofacial Pain Outpatient Referral Routine Obstructive sleep apnea (adult) (pediatric) Expected: 08/10/2023 (Approximate), Expires: 02/09/2025 documented as of this encounter Visit Diagnoses Diagnosis Obstructive sleep apnea (adult) (pediatric)- Primary documented in this encounter Additional Health Concerns Assessment Noted Time A fall risk assessment has been complete d for the patient 07/12/2023 11:31 AM EDT A Body Mass Index follow-up plan has been documented for the patient 07/12/2023 11:59 AM EDT documented as of this encounter Care Teams Vtc Technician Relationship Specialty Start Date End Date Emily Vick, SUSHANT [address] [place] [address] PCP - General 03/21/23 documented as of this encounter
--- OUTSIDE RECORDS SUMMARY | 2024-12-09 15:08 | XMS_ITS | Clinical Summary ---
Author Organization [facility] Address [address] [place] [address] Care Team Providers Care Securities Research Analyst Name Role Phone Emily Vick APRN Primary Care Provider + [phone] Allergies Active Allergy Reactions Criticality Noted Date Comments Cefdinir Rash Low 07/19/2021 Penicillins Unknown - Low Severity Low 04/13/2020 Medications omeprazole (priLOSEC) 40 MG capsule Take 1 capsule by mouth Daily. Active SUMAtriptan (Imitrex) 50 MG tablet Take 1 tablet by mouth 1 (One) Time As Needed for Migraine for up to 1 dose. Take one tablet at onset of headache. May repeat dose one time in 2 hours if headache not relieved. Do not exceed 200 mg in 24 hours 9 tablet 11 2 Active losartan-hydrochlor othiazide (HYZAAR) 100-25 MG per tablet Take 1 tablet by mouth Daily. 5 Active metoprolol succinate XL (TOPROL-XL) 50 MG 24 hr tablet Take 1 tablet by mouth Daily. 5 Active ondansetron ODT (ZOFRAN-ODT) 4 MG disintegrating tablet DISSOLVE 1 TABLET ON THE TONGUE EVERY 8 HOURS NEEDED FOR NAUSEA OR VOMITING 4 Active Active Problems Problem Noted Date Diagnosed Date At high risk for breast cancer 05/22/2024 Menstrual migraine without s tatus migrainosus, not intractable 01/19/2022 Family History Medical History Relation Name Comments Prostate cancer Father Bone cancer Maternal Grandmother Breast cancer Maternal Grandmother 40's Bladder cancer Maternal Uncle 1 Great Bladder cancer Maternal Uncle 2 Great Breast cancer Mother Uterine cancer Paternal Grandmother 60's or 70's Colon cancer Neg Hx Ovarian cancer Neg Hx Relation Name Status Comments Father Alive Maternal Aunt Maternal Grandmother Maternal Uncle 1 Great Maternal Uncle 2 Great Mother Alive Paternal Grandmother Social History Tobacco Use Types Packs/Day Years Used Date Smoking Tobacco: Former Cigarettes Q uit: 2007 Smokeless Tobacco: Never Tobacco Cessation:Counseling Given: Not Answered Alcohol Use Standard Drinks/Week Comments Yes 0 (1 standard drink = 0.6 oz pur e alcohol) 2x month PHQ-2 Answer Date Recorded Patient Health Questionnaire-2 Score 0 05/22/2024 Comments No Sex and Gender Information Value Date Recorded Sex Assigned at Not on file Legal Sex Female 12:27 PM EDT Gender Identity Not on file Sexual Orientation Not on file Last Filed Vital Signs Vital Sign Reading Time Taken Comments Blood Pressure 122/86 05/22/2024 1:40 PM EST Pulse 99 05/22/2024 1:40 PM EST Temperature 36.4 C (97.5 F) 05/22/2024 1:40 PM EST Respiratory Rate 12 05/22/2024 1:40 PM EST Oxygen Saturation 99% 05/22/2024 1:40 PM EST Inhaled Oxygen Concentration - - Weight 80.3 kg (177 lb) 05/22/2024 1:40 PM EST Height 162.6 cm (5' 4 ) 05/22/2024 1:40 PM EST Body Mass Index 30.38 05/22/2024 1:40 PM EST Plan of Treatment Upcoming Encounters Date Type Department Care Team (Late st Contact Info) Description 02/16/2025 9:40 AM EST Appointment [facility] [address] [place] [id number] 05/29/2025 9:30 AM EST Office Visit [facility] [address] [facility] [address] [place] [address] Ronit Soto APRN [address] [facility] [address] [place], [place] [id number] Health Maintenance Due Date Last Done Comments TDAP/TD VACCINES (1 - Tdap) 10/02/1994 ANNUAL PHYSICAL 04/13/2020 HEPATITIS C SCREENING 04/13/2020 COLOGUARD 10/02/2020 COLON CANCER SCREENING 5 YEAR SIGMOIDOSCOPY 10/02/2020 CT COLONOGRAPHY 10/02/2020 FECAL OCCULT BLOOD TEST 10/02/2020 FIT Testing (1 year) 10/02/2020 Annual Gynecologic Pelvic and Breast Exam 09/21/2022 09/20/2021, 09/09/2020 PAP SMEAR 09/10/2023 09/09/2020, 09/03/2019 COVID-19 Vaccine ( season) 2024 02/02/2022, 06/29/2020, 06/01/2020 INFLUENZA VACCINE 12/24/2024 02/02/2022, 01/08/2020 MAMMOGRAM TCS >= 20 02/13/2025 02/14/2024, 12/06/2022, 08/19/2020, Additional history exists Annual Breast MRI 09/03/2025 09/03/2024, , 04/07/2021 COLONOSCOPY 12/29/2031 12/28/2021 COLORECTAL CANCER SCREENING 12/29/2031 MAMMOGRAM Discontinued 09/05/2024, 01/25, 12/06/2022, Additional history exists Pneumococcal Vaccine 0-49 Aged Out No longer eligible based on patient's age to complete this topic Procedures Procedure Name Priority Date/Time Associated Diagnosis Comments MRI BREAST BILATERAL SCREENING W WO CONTRAST Routine 09/03/2024 12:25 PM EDT At high risk for breast cancer MAMMO SCREENING DIGITAL TOMOSYNTHESIS BILATERAL W CAD Routine 02/14/2024 9:59 AM EST Visit for screening mammogram SCANNED - COLONOSCOPY 12/28/2021 SCANNED - PAP SMEAR 09/09/2020 from Last 3 Months or Most Recently Relevant to Health Maintenance Results * MRI Breast Bilateral Screening With & Without Contrast (09/03/2024 12:25 PM EDT) Anatomical Region Laterality Modality Breast Bilateral Magnetic Resonan ce 09/05/2024 2:23 PM EDT Impressions 09/05/2024 2:44 PM EDT Stable benign high risk screening breast MRI. No findings concerning for malignancy are seen on either side. Multiple probable hepatic cysts. Recommend correlation with any known abdominal imaging. BI-RADS CATEGORY: 2, BENIGN The patient is a candidate to continue with annual high risk screening breast MRI. 09/05/2024 2:[address] Ivy Titus MD on [facility] 09/05/2024 2:44 PM EDT BILATERAL BREAST MRI WITH CONTRAST CLINICAL HISTORY: 48-year-old patient presents for high-risk screening breast MRI. The patient's lifetime risk of developing breast cancer has been estimated to be 26.3%. The patient was imaged on day 8 of her menstrual cycle. The patient is status post prior benign MR guided core biopsy of the right breast on 05/06/2021. TECHNIQUE: Pre-contrast spin-echo T1 weighted and T2 sequences were obtained in the axial plane. Routine dynamic images were performed following the administration of 14.0 ml of Multihance contrast. Maximum intensity projection images were created. No contrast complications occurred. Delayed high resolution post contrast T1 weighted sagittal images were also obtained. A CAD system ([employer]) was utilized for data analysis. The patient was imaged with her arms above her head. COMPARISON: Comparison is made to previous breast MRIs done on 12/14/2021, 05/06/2021, 04/07/2021. Comparison is also made to the patient's most recent screening mammogram done on 02/14/2024. FINDINGS: Contrast is identified within the heart and great vessels. There is moderate background contrast enhancement of the patient's red fibroglandular tissue. There are a few scattered cysts present bilaterally. The largest cyst is located in the posterior 8-9 o'clock distribution and measures approximately 1 cm in size. No residual abnormal contrast enhancement is seen at the right 12:00 MRI guided core biopsy site. Scattered foci and larger oval homogeneous non-mass areas of contrast enhancement bilaterally are not significantly changed accounting for differences in technique. No concerning mass or non-mass enhancement is seen on either side. There is no evidence of axillary adenopathy. There is no evidence of internal mammary adenopathy. There are multiple oval masses which are hyperintense on the STIR sequences within the visualized portions of the liver. These do not demonstrate any contrast enhancement are in keeping with hepatic cysts. Result [facility] Ronit Aguilar Charles ALLERGIST IMMUNOLOGIST [facility] MRI ORDERABLES Final R esult * Mammo Screening Digital Tomosynthesis Bilateral With CAD (02/14/2024 9:59 AM EST) Anatomical Region Laterality Modality Breast N/A Mammography 02/20/2024 9:12 AM EST Impressions 02/20/2024 9:14 AM EST Negative bilateral mammogram. RECOMMENDATION: Continue annual screening mammography. Based upon the Tyrer-Cuzick score, the patient may benefit from screening breast MRI. BI-RADS CATEGORY 1, NEGATIVE. CAD was utilized. The standard false-negative rate of mammography is between 10% and 25%. Complex patterns or increased breast density will markedly elevate the false-negative rate of mammography. A letter, in lay terminology, with the results of this exam will be mailed to the patient. This report was finalized on 02/20/2024 9:[address] Augustus Rios MD. Narrative 02/20/2024 9:14 AM EST DIGITAL SCREENING MAMMOGRAM WITH TOMOSYNTHESIS HISTORY: Screening Mammography. Low dose full field digital breast tomosynthesis imaging was performed with 2D and 3D acquisitions consisting of bilateral CC and MLO views. Examination is compared to prior examination dating back to 05/10/2016. Examination is read in conjunction with computer aided detection. FINDINGS: There are scattered areas of fibroglandular density. No suspicious masses, microcalcifications or areas of architectural distortion are present. Result [facility] Emily Vick ALLERGIST IMMUNOLOGIST [facility] MAMMOGRAPHY ORDERABLES F inal Result * SCANNED - COLONOSCOPY (12/28/2021) Avinash Mccloud MD CHART REVIEW TABS Final Result * SCANNED - PAP SMEAR (09/09/2020) Jazlyn Smiley MD CHART REVIEW TABS Final Resu lt from Last 3 Months or Most Recently Relevant to Health Maintenance Insurance [facility] PPO Care Teams Securities Research Analyst Relationship Specialty Start Date End Date Emily Vick APRN PCP - General Internal Medicine 12/06/22
--- OUTSIDE RECORDS SUMMARY | 2024-12-09 15:08 | XMS_ITS | Clinical Summary ---
Author Organization [facility] Address [address] [place] [address] Care Team Providers Care Lithographic Press Operator Apprentice Name Role Phone Emily Vick SUSHANT Primary Care Provider [phone] Allergies Active Allergy Reactions Criticality Noted Date Comments Cefdinir Rash Low 07/19/2021 Penicillins Rash Low 10/25/2014 Medications losartan (Cozaar) 50 MG tablet Take 1 tablet (50 mg) by mouth 2 (two) times a day. Active metoprolol succinate XL (Toprol-XL) 50 MG 24 hr tablet Take 1 tablet (50 mg) by mouth 1 (one) time each day. 01/30/2023 Active omeprazole (PriLOSEC) [address] capsule Take by mouth 1 (one) time each day. Active sertraline (Zoloft) 25 MG tabletIndicatio ns:Fibromyalgia Take 1 tablet (25 mg) by mouth 1 (one) time each day for 30 days, THEN 2 tablets (50 mg) 1 (one) time each day. 150 tablet 04/06/2023 Active Active Problems Problem Noted Date Diagnosed Date Obstructive sleep apnea 07/12/2023 Other fatigue 07/12/2023 Positive MARNIE (antinuclear antibody) 04/05/2023 Fibromyalgia 04/05/2023 Vestibular neuronitis of left ear 03/21/2023 Vertigo 03/21/2023 Sinusitis 03/21/2023 Acute bronchitis 03/21/2023 Menstrual migraine without s tatus migrainosus, not intractable 01/19/2022 Immunizations Immunization Administration Dates Next Due Influenza, injectable, MDCK, preservative free, quadrivalent 02/02/2022 Influenza, injectable, quadrivalent, preservativ e free 01/08/2020 Family History Medical History Relation Name Comments Prostate cancer Father Asthma Mother Atrial fibrillation Mother Breast cancer Mother Heart attack Mother Hypertension Mother Pancreatitis Mother Relation Name Status Comments Father Mother Social History Tobacco Use Types Packs/Day Years Used Date Smoking Tobacco: Never Smokeless Tobacco: Never Tobacco Cessation:Counseling Given: Not [...] Sign Reading Time Taken Comments Blood Pressure 112/80 01/21/2024 3:40 PM EDT Pulse 92 01/21/2024 3:40 PM EDT Temperature 36 C (96.8 F) 01/21/2024 3:40 PM EDT Respiratory Rate 16 07/12/2023 11:27 AM EDT Oxygen Saturation 98% 01/21/2024 3:40 PM EDT Inhaled Oxygen Concentration - - Weight 81 kg (178 lb 9.6 oz) 01/21/2024 3:40 PM EDT Height 162.6 cm (5' 4 ) 01/21/2024 3:40 PM EDT Body Mass Index 30.66 01/21/2024 3:40 PM EDT Plan of Treatment Health Maintenance Due Date Last Done Comments Dental Oral Exam 1975 Dental Prophylaxis 1975 Dental X-Ray: Bitewings 1975 Dental X-Ray: Full Mouth 1975 [facility]-HIV Screening 1975 [facility]-Hepatitis C Screening 1975 [facility]-/Child/Adol SDOH Screenings 1975 [facility]- SDOH Screenings 10/02/1993 [facility]-Adult SDOH Screenings 10/02/1993 [facility]-DTaP,Tdap,and Td Vaccines (1 - Tdap) 10/02/1994 [facility]-Hepatitis B Vaccines (1 of 3 - 19+ 3-dose series) 10/02/1994 [facility]-Pap Smear 10/02/1996 [facility]-Cervical Cancer Screening 10/02/2005 [facility]-HPV/Cotest 10/02/2005 CT Colonography 10/02/2020 Colonoscopy 10/02/2020 FIT-DNA 10/02/2020 FIT 10/02/2020 FOBT 10/02/2020 Sigmoidoscopy 10/02/2020 [facility]-Colorectal Cancer Screening 10/02/2020 [facility]-Depression Screening 07/11/2024 07/12/2023 [id number] Vaccine ( season) 2024 02/02/2022, 06/29/2020, 06/01/2020 [facility]-Influenza Vaccine (#1) 11/24/202405/01, 02/02/2022, 01/08/2020 [facility]-Zoster Vaccines (1 of 2) 10/02/2025 [facility]-Obesity Intervention Completed 024, 12/31/2023, 11/19/2023, Additional history exists HPV Vaccines Aged Out No longer eligi ble based on patient's age to complete this topic [facility]-HIB Vaccines Aged Out No longer e ligible based on patient's age to complete this topic [facility]-Hepatitis A Vaccines Aged Out No longer eligible based on patient's age to complete this topic [facility]-IPV Vaccines Aged Out No longer e ligible based on patient's age to complete this topic [facility]-Pneumococcal Vaccine: Pediatrics (0 to 5 Years) and At-Risk Patients (6 to 49 Years) Aged Out No longer eligible based on patient's age to complete this topic [facility]-Rotavirus Vaccines Aged Out No lo nger eligible based on patient's age to complete this topic Insurance [employer] Care Teams Lithographic Press Operator Apprentice Relationship Specialty Start Date End Date Emily Vick APRN [address] [place] [address] PCP - General 03/21/23
--- OUTSIDE RECORDS SUMMARY | 2024-12-09 15:08 | XMS_ITS | Clinical Summary ---
Author Organization [facility] Address [facility] [place] [address] Care Team Providers Care Creative Consultant Name Role Phone None, Physician Primary Care Provider Unavailabl e Allergies Active Allergy Reactions Criticality Noted Date Comments Penicillins 10/25/2014 Medications lisinopril (PRINIVIL,ZESTRI L) 10 MG tablet Take 10 mg by mouth daily Active gabapentin (NEURONTIN) 100 MG capsule Take 100 mg by mouth 3 (three) times daily Active Social History Tobacco Use Types Packs/Day Years Used Date Smoking Tobacco: Never Assessed Comments No Sex and Gender Information Value Date Recorded Sex Assigned at Not on file Legal Sex Female 8:05 PM EDT Gender Identity Not on file Sexual Orientation Not on file Last Filed Vital Signs Vital Sign Reading Time Taken Comments Blood Pressure 145/96 10/25/2014 10:40 PM EDT Pulse 87 10/25/2014 10:40 PM EDT Temperature 36.7 C (98 F) 10/25/2014 10:40 PM EDT Respiratory Rate 16 10/25/2014 10:40 PM EDT Oxygen Saturation 99% 10/25/2014 8:08 PM EDT Inhaled Oxygen Concentration - - Weight 72.6 kg (160 lb) 10/25/2014 8:08 PM EDT Height - - Body Mass Index - - Plan of Treatment Health Maintenance Due Date Last Done Comments Breast Cancer Screening 1975 CT Colonography 1975 Colonoscopy 1975 Colorectal Cancer Screening 1975 FIT-DNA 1975 FIT 1975 FOBT 1975 Sigmoidoscopy 1975 Hepatitis B (HepB) Vaccine ( 1 of 3 - 19+ 3-dose series) 10/02/1994 Tdap/Td Vaccine >11 yo (1 - Tdap) 10/02/1994 Cervical Cancer Screening 10/02/1996 Annual SDOH Screening 03/26/2024 Influenza Vaccine (#1) 2024 Haemophilus Influenzae Type B (Hib) Vaccine Aged Out No longer eligible b ased on patient's age to complete this topic Hepatitis A (HepA) Vaccine Aged Out N o longer eligible based on patient's age to complete this topic Meningococcal ACWY Aged Out No longer eligible based on patient's age to complete this topic Pneumococcal Vaccines 6-49 yo Risk Aged Out No longer eligible based on patient's age to complete this topic Polio (IPV) Aged Out No longer eligi ble based on patient's age to complete this topic Rotavirus (RV) Vaccine Aged Out No lo nger eligible based on patient's age to complete [place] [address] [place] [address] [facility] Care Teams Creative Consultant Relationship Specialty Start Date End Date None, Physician PCP - General 10/25/14
[2024-12-09 17:16] LABS: Coronavirus 19, PCR Detected (NotDetected)
== END 2024-12-09 23:59 | disposition home or self-care (01) ==
LOC: LAB.DROPOF 15:05
PROVIDERS: PCP Student in an Organized Health Care Education/Training Program; Visit Provider Student in an Organized Health Care Education/Training Program
DX: J06.9 Acute upper respiratory infection, unspecified (principal)
CPT/HCPCS: 87631